=== PATIENT | male | born 1950 | race Caucasian/White ===

== ENCOUNTER → 2020-11-21 00:49 | Outpatient (CLI) | payer MEDICARE, SELFPAY ==
[2020-11-21 17:56] LABS: SARS-CoV-2 RNA PCR Negative
== END ==
PROVIDERS: PCP Family Medicine; Visit Provider Internal Medicine Gastroenterology
DX: Z01.812 Encounter for preprocedural laboratory examination (principal); Z20.822 Contact with and (suspected) exposure to COVID-19
CPT/HCPCS: C9803; U0003; U0005

== ENCOUNTER 2020-11-25 01:11 | Day surgery (SDC) | payer MEDICARE, SELFPAY ==
[2020-11-12 15:45] VITALS: BMI 27.3
--- NOTE | 2020-11-24 13:26 | P.PNAN_ITS ---
Anes - Initial Pre Proc Eval Procedure: Operation Date: 11/25/20 09:30 Proposed Procedures p Screening Colonoscopy - Chidi Borden MD Date/Time: 11/24/20 13:26 Surgeon: Chidi Borden MD Pre Op Diagnosis: family hx of colon ca Patient Data Age: 70 Gender: M Height: 1.68 m Weight: 77 kg Allergies Allergy/AdvReac Type Severity Reaction Status Date / Time No Known Allergies Allergy Verified 11/25/20 08:22 Home Medications Medication Instructions Recorded Confirmed Type amlodipine 5 mg PO DAILY 11/12/20 11/12/20 History ascorbic acid (vitamin C) 1 g PO DAILY 11/12/20 11/12/20 History benazepril 20 mg PO DAILY 11/12/20 11/12/20 History multivit with min-folic acid 1 tablet PO DAILY 11/12/20 11/12/20 History [Adult One Daily Multivitamin] simvastatin 20 mg PO DAILY 11/12/20 11/12/20 History Patient hx anesthesia problems: none Family hx anesthesia problems: none [facility] Past Medical History Medical History (Updated 11/24/20 @ 13:27 by Clark Wyamn DO) Hyperlipidemia Hypertension Surgical History Surgical History (Updated 11/24/20 @ 13:26 by Clark Wyman DO) History of appendectomy Social History Social History Smoking status: Never smoker Living arrangements: with family Spiritual care concerns: No Anes - Eval Final PreProcedure Day of Procedure 11/24/20 13:26 Patient weight: overweight Heart: regular rate and rhythm Lungs: clear to auscultation and normal air movement Airway: Mallampati scale class II Neurological: alert and oriented Last oral intake: >/= 8 hours ASA classification: II Emergent: no Anesthetic plan: proceed Anesthesia type and monitoring: general GIVS and standard monitoring Informed Consent: The patient's anesthetic plan and its attendant risks and benefits were discussed with the patient/family/POA. Questions were solicited and answers provided to the satisfaction of the patient/family/POA.
[2020-11-25 08:24] VITALS: BP 130/88; PULSE 65; RESP 18; TEMP 35.6; O2SAT 100
[2020-11-25] MEDS: LACTATED RINGERS 1,000 ML 150 ML IV CONT (08:37)
--- NOTE | 2020-11-25 09:36 | WPDGICN ---
Assessment and Plan Assessment and plan (1) Family history of colon cancer in father: Code(s): Z80.0 - Family history of malignant neoplasm of digestive organs Status: Acute Assessment and Plan: Patient's father and brother both had colon cancer. For this reason colonoscopy is recommended now and at least every 5 years in the future. GI Consult Note Consult date/time: 11/25/20 09:36 HPI: Tito Ly is a 70 year old male Presents for screening colonoscopy. Patient's last exam was 2015. It was normal. Family history is significant father and brother both have had colon cancer. Patient states that his own weight appetite bowel movements are normal. Patient denies abdominal pain. He has had no bleeding. His bowel habits are regular. He presents today for surveillance exam. Review of Systems Review of Systems: All systems reviewed & are unremarkable except as noted in HPI and below PMFSH Past Medical History Medical History (Updated 11/25/20 @ 09:37 by Chidi Borden MD) Hyperlipidemia Hypertension Surgical History Surgical History (Updated 11/24/20 @ 13:26 by Clark Wyman DO) History of appendectomy Social History Social History Smoking status: Never smoker Living arrangements: with family Spiritual care concerns: No Meds Home Medications and Allergies Home Medications Medication Instructions Recorded Confirmed Type amlodipine 5 mg PO DAILY 11/12/20 11/12/20 History ascorbic acid (vitamin C) 1 g PO DAILY 11/12/20 11/12/20 History benazepril 20 mg PO DAILY 11/12/20 11/12/20 History multivit with min-folic acid 1 tablet PO DAILY 11/12/20 11/12/20 History [Adult One Daily Multivitamin] simvastatin 20 mg PO DAILY 11/12/20 11/12/20 History Allergies Allergy/AdvReac Type Severity Reaction Status Date / Time No Known Allergies Allergy Verified 11/25/20 08:22 Vital Signs Vital Signs - 24 hr 11/25/20 08:24 Temperature 96.1 F L Pulse Rate 65 Respiratory Rate 18 Blood Pressure 130/88 Pulse Oximetry 100 Exam Narrative: Exam Narrative: Physical exam reveals patient be alert. Vital signs stable. HEENT exam unremarkable. Patient is anicteric. Lungs are clear to auscultation and percussion. Heart is without murmur or extra sounds. Abdominal exam bowel sounds are present soft nontender with no organomegaly. Digital external rectal exam is normal.
[2020-11-25 10:10] VITALS: BP 118/79; PULSE 59; RESP 18; O2SAT 100
[2020-11-25 10:20] VITALS: BP 131/86; PULSE 59; RESP 16; O2SAT 100
[2020-11-25 10:30] VITALS: BP 136/90; PULSE 59; RESP 16; O2SAT 100
== END 2020-11-25 10:38 | disposition home or self-care (01) ==
PROVIDERS: PCP Family Medicine; Visit Provider Internal Medicine Gastroenterology
PROC: 0DJD8ZZ Inspection of Lower Intestinal Tract, Via Natural or Artificial Opening Endoscopic (ICD-10-PCS; CPT 45378; principal; 2020-11-25 09:30)
DX: Z12.11 Encounter for screening for malignant neoplasm of colon (principal); D12.3 Benign neoplasm of transverse colon; K64.8 Other hemorrhoids; Z80.0 Family history of malignant neoplasm of digestive organs; I10 Essential (primary) hypertension; E78.5 Hyperlipidemia, unspecified
CPT/HCPCS: 45385; 88305; C9803; J2704; J7120; U0003; U0005

== ENCOUNTER 2024-05-14 02:09 | Day surgery (SDC) | payer MEDICARE, SELFPAY ==
[2024-04-24 11:31] VITALS: BMI 27.6
--- NOTE | 2024-05-14 08:23 | SUR.PREOP ---
Pt states he has advance directives in place for DNR. Pt states he wishes to be a full code during his colonoscopy.
[2024-05-14 08:25] VITALS: BP 112/68; PULSE 70; RESP 18; TEMP 36.2; O2SAT 100
[2024-05-14] MEDS: LACTATED RINGERS 1,000 ML 150 ML IV CONT (08:33)
--- NOTE | 2024-05-14 08:42 | P.PNAN_ITS ---
Anes - Initial Pre Proc Eval Procedure: Operation Date: 05/14/24 09:30 Proposed Procedures p Colonoscopy - Alan Kramer MD Date/Time: 05/14/24 08:42 Surgeon: Alan Kramer MD Pre Op Diagnosis: Personal hx. of colon polyps Patient Data Age: 74 Gender: M Height: 1.68 m Weight: 76 kg Last Vital Signs Temp 36.2 C L 05/14/24 08:25 Pulse 70 05/14/24 08:25 Resp 18 05/14/24 08:25 BP 112/68 05/14/24 08:25 Pulse Ox 100 05/14/24 08:25 O2 Del Method Room Air 05/14/24 08:25 Allergies Allergy/AdvReac Type Severity Reaction Status Date / Time No Known Allergies Allergy Verified 05/14/24 08:23 Home Medications Medication Instructions Recorded Confirmed Type amlodipine 5 mg tablet 5 mg PO DAILY 11/12/20 05/14/24 History ascorbic acid (vitamin C) 1,000 mg 1 g PO DAILY 11/12/20 05/14/24 History tablet benazepril 20 mg tablet 20 mg PO DAILY 11/12/20 05/14/24 History multivitamin with minerals-folic 1 tablet PO DAILY 11/12/20 05/14/24 History acid 0.4 mg tablet (Adult One Daily Multivitamin) simvastatin 20 mg tablet 20 mg PO DAILY 11/12/20 05/14/24 History Patient hx anesthesia problems: none Family hx anesthesia problems: none Results Review: All pre-operative results and documents have been reviewed as part of the pre- operative evaluation. [facility] Past Medical History Medical History Hyperlipidemia Hypertension Surgical History Surgical History History of appendectomy Social History Social History Smoking packs per day: 0.5 Smoking cigarettes per day: 10.0 Years smoked: 2 Smoking pack-years: 1.00 Smoking status: Former smoker Tobacco type: cigarettes Alcohol intake: never Substance use: never Substance use type: does not use Living arrangements: alone Spiritual care concerns: No Anes - Eval Final PreProcedure Day of Procedure 05/14/24 08:42 Patient weight: overweight Heart: regular rate and rhythm Lungs: clear to auscultation Airway: Mallampati scale class II Neurological: alert and oriented Last oral intake: >/= 8 hours ASA classification: II Emergent: no Anesthetic plan: proceed Anesthesia type and monitoring: general GIVS and standard monitoring Results Review: All pre-operative results and documents have been reviewed as part of the pre- operative evaluation. Informed Consent: The patient's anesthetic plan and its attendant risks and benefits were discussed with the patient/family/POA. Questions were solicited and answers provided to the satisfaction of the patient/family/POA.
--- NOTE | 2024-05-14 09:19 | PM.HPGS ---
History of Present Illness History of Present Illness Consent: Risks, benefits, and alternatives have been discussed and questions answered. Patient agrees to proceed with procedure. Chief complaint: Personal hx. of colon polyps Narrative: Tito Ly is a 74 year old male here for colonoscopy, last exam was 2020. Family history is significant father and brother both have had colon cancer. Review of Systems Review of Systems: All systems reviewed & are unremarkable except as noted in HPI and below PMFSH Past Medical History Medical History Hyperlipidemia Hypertension Surgical History Surgical History History of appendectomy Social History Social History Smoking packs per day: 0.5 Smoking cigarettes per day: 10.0 Years smoked: 2 Smoking pack-years: 1.00 Smoking status: Former smoker Tobacco type: cigarettes Alcohol intake: never Substance use: never Substance use type: does not use Living arrangements: alone Spiritual care concerns: No Meds Home Medications and Allergies Home Medications Medication Instructions Recorded Confirmed Type amlodipine 5 mg tablet 5 mg PO DAILY 11/12/20 05/14/24 History ascorbic acid (vitamin C) 1,000 mg 1 g PO DAILY 11/12/20 05/14/24 History tablet benazepril 20 mg tablet 20 mg PO DAILY 11/12/20 05/14/24 History multivitamin with minerals-folic 1 tablet PO DAILY 11/12/20 05/14/24 History acid 0.4 mg tablet (Adult One Daily Multivitamin) simvastatin 20 mg tablet 20 mg PO DAILY 11/12/20 05/14/24 History Allergies Allergy/AdvReac Type Severity Reaction Status Date / Time No Known Allergies Allergy Verified 05/14/24 08:23 Vital Signs Vital Signs - 24 hr 05/14/24 08:25 Temperature 97.1 F L Pulse Rate 70 Respiratory Rate 18 Blood Pressure 112/68 Pulse Oximetry 100 Oxygen Delivery Room Air Exam Const: General: comfortable and no acute distress HENMT: Face/Nose/Sinus: Normal nares present Eyes: General: appearance normal, both eyes and all related structures Neck: Neck: no JVD Resp: Auscultation: clear to auscultation bilaterally Cardio: Rate: regular rate Rhythm: regular rhythm GI: Inspection: non-distended GI Palp: Yes Soft to palpation Skin: General skin exam: normal color Neuro: General: gait normal Speech: normal speech Extrem: General: normal to inspection Psych: Mental Status: mental status grossly normal Assessment and Plan Assessment and plan (1) Family history of colon cancer in father: Code(s): Z80.0 - Family history of malignant neoplasm of digestive organs Status: Acute Assessment and Plan: colonoscopy
[2024-05-14 09:35] VITALS: BP 88/57; PULSE 62; RESP 15; O2SAT 97
[2024-05-14 09:45] VITALS: BP 95/59; PULSE 61; RESP 15; O2SAT 97
[2024-05-14 09:55] VITALS: BP 112/68; PULSE 61; RESP 16; O2SAT 99
== END 2024-05-14 10:07 | disposition home or self-care (01) ==
PROVIDERS: PCP Family Medicine; Visit Provider Internal Medicine Gastroenterology
PROC: 0DJD8ZZ Inspection of Lower Intestinal Tract, Via Natural or Artificial Opening Endoscopic (ICD-10-PCS; CPT 45378; principal; 2024-05-14 09:30)
DX: Z12.11 Encounter for screening for malignant neoplasm of colon (principal); D12.2 Benign neoplasm of ascending colon; K63.5 Polyp of colon; K64.8 Other hemorrhoids; E78.5 Hyperlipidemia, unspecified; I10 Essential (primary) hypertension; Z98.890 Other specified postprocedural states; Z87.891 Personal history of nicotine dependence; Z80.0 Family history of malignant neoplasm of digestive organs
CPT/HCPCS: 45385; 88305; J2704; J7120

== ENCOUNTER 2024-07-12 01:31 | Day surgery (SDC) | payer MEDICARE, OTHER, SELFPAY ==
[2024-07-09 12:59] VITALS: BMI 26.6
--- OUTSIDE RECORDS SUMMARY | 2024-07-12 01:36 | XMS_ITS | Clinical Summary ---
Author Organization [facility] [employer] Address [address] [place] [address] Care Team Providers Care Paint Booth Operator Name Role Phone Kevin Hay MD Primary Care Provider [phone] Source Comments [facility] [employer],non-owned Affiliates and Associated Physician Practices is amultiple site organization consisting of ambulatory clinics and hospital sitesin [place], [place], [place] and [place]. This disclosure is being madepursuant to the Care Everywhere program and may not contain all information available regarding this patient. Last updated 18.[facility] [employer] Allergies No known active allergies Medications * Be aware that medications may not be up to date on this document. Alwaysverify current medications with the patient. Medication Sig Dispensed Refills Start Date End Date Status simvastatin (ZOCOR) 20 MG tablet Take 20 mg by mouth once daily 04/29/2020 Active benazepril (LOTENSIN) 20 MG tablet Take 20 mg by mouth once daily 04/29/2020 Active amLODIPine (NORVASC) 5 MG tablet Take 5 mg by mouth once daily 01/24/2020 Active multivitamin daily tablet Take 1 tablet by mouth daily with food Active vitamin C (ASCORBIC ACID) 1000 MG tablet Take 1,000 mg by mouth once daily Active vitamin D3 (CHOLECALCIFEROL) 25 MCG (1000 UNITS) tablet Take 1,000 Units by mouth once daily Active CLENPIQ solution 11/17/2020 Active mometasone (ELOCON) 0.1 % ointmentIndications:Ot her eczema Apply to dry areas on hands twice daily. 30 days supply. 45 g 11 05/12/2021 Active econazole nitrate (SPECTAZOLE) 1 % cream Apply to feet and left hand 1-2 times daily. 30 days supply. 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 Hypercholesterolemia 08/01/2013 Hypertension 08/01/2013 Vitamin B1 deficiency 08/30/2012 Vitamin D deficiency 08/30/2012 Immunizations Name Administration Dates Next Due INFLUENZA VACCINE 04/05/2020 Family History Medical History Relation Name Comments None Known Brother None Known Father None Known Maternal Aunt None Known Maternal Grandfather None Known Maternal Grandmother None Known Maternal Uncle None Known Mother None Known Other None Known Paternal Aunt None Known Paternal Grandfather None Known Paternal Grandmother None Known Paternal Uncle None Known Sister Asthma Neg Hx CVA Neg Hx Cancer - Breast Neg Hx Cancer - Other Neg Hx Cancer - Skin, Melanoma Neg Hx Cancer - Skin, Non Melanoma Neg Hx Eczema Neg Hx Hemophilia Neg Hx Psoriasis Neg Hx Relation Name Status Comments Brother Father Maternal Aunt Maternal Grandfather Maternal Grandmother Maternal Uncle Mother Other Paternal Aunt Paternal Grandfather Paternal Grandmother Paternal Uncle Sister Social History Tobacco Use Types Packs/Day Years Used Date Smoking Tobacco: Never Smokeless Tobacco: Never Sex and Gender Information Value Date Recorded Sex Assigned at Not on file Gender Identity Not on file Sexual Orientation Not on file Plan of Treatment Health Maintenance Due Date Last Done Comments COLOGUARD (AGES 45-75) - COL ON CA SCREENING 1949 COLON MONITORING 1949 COLONOSCOPY - COLON CA SCREENING 1949 CT COLONOGRAPHY - COLON CA SCREENING 1950 Colorectal Cancer Screening 1949 FIT - COLON CA SCREENING 1949 FLEX SIG - COLON CA SCREENING 1950 HEPATITIS C SCREENING 01/18/1967 DTAP/TDAP/TD VACCINES (1 - Tdap) 01/23/1968 PNEUMOCOCCAL VACCINE 50+ (1 of 1 - PCV) 1999 ZOSTER VACCINE (1 of 2) 1999 Respiratory Syncytial Virus (RSV) Vaccine Pt: or over 60 yrs (1 - 1-dose 75+ series) 01/23/2024 COVID-19 VACCINE (2023-2 5 season) 2024 INFLUENZA VACCINE (#1) 2024 1, 04/05/2020 DEPRESSION SCREENING 06/12/2024 MEDICARE AWV ? CALENDAR YEAR 2024 HEPATITIS B VACCINE Aged Out No longe r eligible based on patient's age to complete this topic HIB VACCINE Aged Out No longer eligi ble based on patient's age to complete this topic HPV VACCINE Aged Out No longer eligi ble based on patient's age to complete this topic MENINGOCOCCAL (Group B) VACCINE Aged Out No longer eligible b ased on patient's age to complete this topic MENINGOCOCCAL VACCINE Aged Out No oksana lauren eligible based on patient's age to complete this topic Care Teams Paint Booth Operator Relationship Specialty Start Date End Date Kevin Hay MD PCP - General 08/10/15
--- OUTSIDE RECORDS SUMMARY | 2024-07-12 01:36 | XMS_ITS | Patient Health Summary ---
Author Organization [facility] Address [address] [place] [address] Care Team Providers Care Frame Maker Name Role Phone Kevin Hay MD Primary Care Provider [phone] Note from [facility],non-owned Affiliates and Associated Physician Practices is amultiple site organization consisting of ambulatory clinics and hospital sitesin [place], [place], [place] and [place]. This disclosure is being madepursuant to the Care Everywhere program and may not contain all information available regarding this patient. Last updated 18.[facility] Allergies No known active allergies Medications * Be aware that medications may not be up to date on this document. Alwaysverify current medications with the patient. * simvastatin (ZOCOR) 20 MG tablet(Started 04/29/2020) Take 20 mg by mouth once daily * benazepril (LOTENSIN) 20 MG tablet(Started 04/29/2020) Take 20 mg by mouth once daily * amLODIPine (NORVASC) 5 MG tablet(Started 01/24/2020) Take 5 mg by mouth once daily * multivitamin daily tablet Take 1 tablet by mouth daily with food * vitamin C (ASCORBIC ACID) 1000 MG tablet Take 1,000 mg by mouth once daily * vitamin D3 (CHOLECALCIFEROL) 25 MCG (1000 UNITS) tablet Take 1,000 Units by mouth once daily * CLENPIQ solution(Started 11/17/2020) * mometasone (ELOCON) 0.1 % ointment(Started 05/12/2021) Apply to dry areas on hands twice daily. 30 days supply. 11 refills by 05/12/2022 * econazole nitrate (SPECTAZOLE) 1 % cream(Started 11/15/2021) Apply to feet and left hand 1-2 times daily. 30 days supply. 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 Hypercholesterolemia 08/01/2013 Hypertension 08/01/2013 Vitamin B1 deficiency 08/30/2012 Vitamin D deficiency 08/30/2012 Immunizations * INFLUENZA VACCINE(Given 04/05/2020) Social History Tobacco Use Types Packs/Day Years Used Date Smoking Tobacco: Never Smokeless Tobacco: Never Sex and Gender Information Value Date Recorded Sex Assigned at Not on file Gender Identity Not on file Sexual Orientation Not on file Procedures * CA DESTROY PREMALIG LESION, 1ST LESION(Performed 05/12/2021) Performed for Actinic keratosis * CA DESTROY PREMALIG LESION, 2-14(Performed 05/12/2021) Performed for Actinic keratosis * CA DESTROY PREMALIG LESION, 1ST LESION(Performed 05/06/2020) Performed for Actinic keratosis * CA DESTROY PREMALIG LESION, 2-14(Performed 05/06/2020) Performed for Actinic keratosis * DERMATOPATHOLOGY(Performed 06/17/2011) Results * CA DESTROY PREMALIG LESION, 2-14, CA DESTROY PREMALIG LESION, 1ST LESION (05/12/2021 12:17 PM GAME DEVELOPER) Narrative Ian Pedroza MD - 05/12/2021 12:17 PM GAME DEVELOPER Biju Washington MD ? 05/12/2021 12:18 PM Diagnosis and treatment options discussed. Cryotherapy (Liquid Nitrogen) to 7 lesions for 4-6 seconds each. Number of cycles: 1. Wound care reviewed. Ian Pedroza MD PROCEDURE/MINOR SURG ICAL ORDERABLES * CA DESTROY PREMALIG LESION, 2-14, CA DESTROY PREMALIG LESION, 1ST LESION (05/06/2020 4:01 PM GAME DEVELOPER) Narrative Ian Pedroza MD - 05/06/2020 4:01 PM GAME DEVELOPER Lisa East MD ? 05/06/2020 ??4:02 PM Diagnosis and treatment options discussed for AK. Verbal consent obtained. ?? Cryotherapy (Liquid Nitrogen) performed to 8 lesions (scalp, ears, face, back, mid-chest) for 10 seconds each. Number of cycles: 1. Wound care reviewed and post-cryotherapy handout given. 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 Check margins. GROSS DESCRIPTION: Received is one formalin filled container labeled with the patient's name and designated right buttock. The specimen consists of a shave biopsy measuring 10x6x1 mm. Jar 0. MICROSCOPIC DESCRIPTION: Embedded in a fibrous cellular stroma there are numerous anastomosing narrow strands of basaloid cells. ??In areas, the collections of basaloid cells show peripheral palisading. Lesion is present at the margin of the specimen. Final Diagnosis performed by Racheal De Leon M.D. Electronically signed 06/21/2011 2:36:25PM [facility] Comment: Performed at: Dermatopathology Laboratory [facility] Department of Dermatology [address] [place] [address], [address] [place] [address] Phone number: [phone] Toll Free: [phone] FAX: [phone] 06/17/2011 06/20/2011 Historical Provider LAB - PATHOLOGY/C YTOLOGY ORDERABLES [facility] [address] Lab [address] [phone] Care Teams Frame Maker Relationship Specialty Start Date End Date Kevin Hay MD [facility] - General 08/10/15
--- OUTSIDE RECORDS SUMMARY | 2024-07-12 01:36 | XMS_ITS | Clinical Summary ---
Author Organization [facility] Address [address] [place] [address]. [place] [address] [place] [address] Care Team Providers Care Vp Marketing Name Role Phone Kevin Hay MD Primary Care Provider [phone] Allergies No known active allergies Medications Multiple Vitamin (MULTI VITAMIN MENS) Tab Take 1 tablet by mouth daily. 10/22/19 15 Active Ascorbic Acid 1000 MG Tab Take 1,000 mg by mouth daily. Active benazepril (LOTENSIN) 20 MG tabletIndicati ons:Hypertensi on, unspecified type TAKE 1 TABLET BY MOUTH EVERY DAY 90 tablet 1 05/17/20 24 Active simvastatin (ZOCOR) 20 MG tabletIndicati ons:Hyperchole sterolemia TAKE 1 TABLET BY MOUTH EVERYDAY AT BEDTIME 90 tablet 05/17/20 24 Active tiZANidine HCl 2 MG CapIndications :Strain of trapezius muscle, unspecified laterality, subsequent encounter TAKE 1 CAPSULE BY MOUTH EVERY DAY 90 capsule 1 06/26/19 25 Active Additional Information Patient not taking.Reported on 07/02/2024 Calcium-Vitami n D-Vitamin K 650-12.5-40 MG-MCG-MCG Chew TabIndications :PT TAKING IN PILL FORM Chew 650 mg by mouth daily. Indications: PT TAKING IN PILL FORM Active folic acid (FOLVITE) 400 MCG tablet Take 1 tablet (400 mcg total) by mouth daily. Active Selenium 200 MCG Tab Take 200 mcg by mouth daily. Active [place]-3 Fatty Acids (FISH OIL) 500 MG capsule Take 1,000 mg by mouth daily. Active amLODIPine (NORVASC) 5 MG tabletIndicati ons:Hypertensi on, unspecified type Take 1 tablet (5 mg total) by mouth daily. 90 tablet 1 07/03/19 25 Active tiZANidine HCl 2 MG CapIndications :Strain of trapezius muscle, unspecified laterality, subsequent encounter take 1 capsule by mouth every day 90 capsule 1 11/01/19 24 025 Discontinued amLODIPine (NORVASC) 5 MG tabletIndicati ons:Hypertensi on, unspecified type Take 1 tablet (5 mg total) by mouth daily. 90 tablet 05/02/20 24 025 Discontinued(R eorder) Active Problems Problem Noted Date Diagnosed Date Overweight (BMI 25.0-29.9) 01/16/2023 Neck pain 01/03/2022 Cervical stenosis of spine 11/23/2021 Overview (04/28/2022): Last Assessment & Plan: Mr. Ly has posterior neck pain associated with cervical stenosis. He does not have any radicular symptoms or myelopathic changes. Explained to the patient all options are open to him including medications, injections, physical therapy, chiropractor treatment and eventually possibility of surgical intervention in the form of C6-7 anterior cervical diskectomy and fusion. Explained to the patient given the fact that he does not have any motor deficits to consider pain management and/or chiropractic treatment for symptomatic relief. Instructed the patient to call the office back should he developed increased weakness, numbness tingling, pain that is unrelenting, issues with balance and manual dexterity. Reviewed the MRI study with patient, his and daughter and discussed the nature of the problem and the surgical approach that Dr. Ivey has recommended. They would like to proceed with conservative route of treatment prior to consideration of surgery at this time. Patient to follow up as needed. MRI CD as well as the CT scan films have been return to the patient. 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 Hypercholesterolemia 08/01/2013 Hypertension 08/01/2013 Vitamin B1 deficiency 08/30/2012 Vitamin D deficiency 08/30/2012 Resolved Problems Problem Noted Date Diagnosed Date Resolved Date Wears glasses 08/03/2017 02/21/2020 Encounters Date Type Department Care Team Description 07/03/2024 Scan [facility] Scanned, [facility] 07/02/2024 9:20 AM FINANCIAL LEGAL ASSISTANT Office Visit [facility] [address] [phone] Eliot Perla PA TCM (Pt here for follow up from hospital discharge) 07/02/2024 Travel 07/01/2024 Telephone [facility] [address] [address] Kevin Hay MD TCM 06/30/2024 Scan [facility] Scanned, Doc Med Group 05/14/2024 Scan [facility] Scanned, Doc Med Group Pathology (SCAN); Colonoscopy Report (SCAN) 05/02/2024 7:20 AM FINANCIAL LEGAL ASSISTANT Office Visit [facility] [address] [phone] Kevin Hay MD Follow Up; Hypertension 05/02/2024 Travel from Last 3 Months Immunizations Name Administration Dates Next Due Fluad influenza vaccine, Bernardo drivalent (aIIV4), Inactivated, adjuvanted, preservative free, 0.5 mL,IM use 04/08/2020 Fluzone High Dose - >Age 65 (Prefilled Syringe) 05/01/2023,03/09/2021 Influenza Adult (Generic) 04/23/2022,03/09/2021 PFIZER COVID-19 (ORIGINAL FO RMULATION, PURPLE CAP) mRNA, LNP-S, PF, 30 MCG/0.3 ML DOSE 05/10/2021,09/02/2020,08/11/2020 Shingrix 06/08/2021,02/12/2021 Tdap (Adacel) 10/01/2021 Family History Medical History Relation Comments Colon Cancer Father Heart Attack Mother Relation Status Comments Brother Father Mother Social History Tobacco Use Types Packs/Day Years Used Date Smoking Tobacco: Former Cigarettes Smokeless Tobacco: Never Tobacco Cessation:Counseling Given: Yes Comments:former smoker Alcohol Use Standard Drinks/Week Comments No 0 (1 standard drink = 0.6 oz pur e alcohol) AUDIT-C Answer Date Recorded Frequency of Alcohol Consumption Never 05/08/2018 Average Number of Drinks Not on file 018 Frequency of Binge Drinking Not on file 04/13 PHQ-2 Answer Date Recorded Patient Health Questionnaire-2 Score 0 07/02/2024 Sex and Gender Information Value Date Recorded Sex Assigned at Not on file Legal Sex Male 7:40 PM CDT Gender Identity Not on file Sexual Orientation Not on file Last Filed Vital Signs Vital Sign Reading Time Taken Comments Blood Pressure 135/85 07/02/2024 9:27 AM FINANCIAL LEGAL ASSISTANT Pulse 71 07/02/2024 9:27 AM FINANCIAL LEGAL ASSISTANT Temperature 36.4 ??C (97.5 ??F) 07/02/2024 9:27 AM CS T Respiratory Rate 16 07/02/2024 9:27 AM FINANCIAL LEGAL ASSISTANT Oxygen Saturation 100% 07/02/2024 9:27 AM FINANCIAL LEGAL ASSISTANT Inhaled Oxygen Concentration - - Weight 73 kg (161 lb) 07/02/2024 9:27 AM FINANCIAL LEGAL ASSISTANT Height 167.6 cm (5' 6 ) 07/02/2024 9:27 AM FINANCIAL LEGAL ASSISTANT Body Mass Index 25.99 07/02/2024 9:27 AM FINANCIAL LEGAL ASSISTANT Plan of Treatment Upcoming Encounters Date Type Department Care Team (Late st Contact Info) Description 10/31/2024 7:40 AM CDT Office Visit [facility] Family & Internal Medicine [facility] [id number] [place] [phone] [place] [id number] [place] [address] Health Maintenance Due Date Last Done Comments Hepatitis C 1968 Annual Medicare Wellness Visit 2014 Pneumococcal Vaccine: 65+ Years (1 of 1 - PCV) 2014 RSV Immunization or 60+ Years (1 - 1-dose 75+ series) 01/23/2024 COVID-19 Vaccine (4 - 2024-25 season) 2024 05/10/2021, 09/02/2020, 08/11/2020 Influenza Adult (#1) 2024 05/01/2023, 04/23/2022, 03/09/2021, Additional history exists PHQ-2 (Physician Deering) 07/02/2025 07/02/2024 DTaP, Tdap and Td Vaccines (2 - Td or Tdap) 10/02/2031 10/01/2021 Colorectal Cancer Screening Colonoscopy (10 Years) 05/14/2034 05/14/2024, 10/03/2017, 08/05/2017 Zoster Vaccines Completed 06/08/2021, 02/12/2021 AAA SCREENING Completed 06/30/2024, 06/30/2024 PHQ-2 (Physician Deering) Completed 07/02/2024 Meningococcal B Vaccine Aged Out No l onger eligible based on patient's age to complete this topic Meningococcal Vaccine Aged Out No oksana lauren eligible based on patient's age to complete this topic RSV Immunizations Under 20 Months Aged Out No longer eligible based on patient's age to complete this topic Procedures Procedure Name Priority Date/Time Associated Diagnosis Comments PATHOLOGY GENERIC (SCAN ORDER) 05/14/2024 COLONOSCOPY GENERIC (SCAN ORDER) 05/14/2024 from Last 3 Months Results * PATHOLOGY GENERIC (SCAN ORDER) (05/14/2024) 05/14/2024 [facility] Scanned SCANNING Final Resu lt * COLONOSCOPY GENERIC (SCAN ORDER) (05/14/2024) 05/14/2024 [facility] Scanned SCANNING Final Resu lt from Last 3 Months Additional Health Concerns Infection Onset Date Last Indicated 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
--- OUTSIDE RECORDS SUMMARY | 2024-07-12 01:36 | XMS_ITS | Referral Summary ---
Author Organization [facility] Address [address] [place] [address] Care Team Providers Care Timber Cruiser Name Role Phone Kevin Hay MD Primary Care Provider [phone] Source Comments [facility],non-owned Affiliates and Associated Physician Practices is amultiple site organization consisting of ambulatory clinics and hospital sitesin [place], [place], [place] and [place]. This disclosure is being madepursuant to the Care Everywhere program and may not contain all information available regarding this patient. Last updated 18.[facility] Allergies No known active allergies Medications * [...] Administration Dates Next Due INFLUENZA VACCINE 04/05/2020 Social History Tobacco Use Types Packs/Day Years Used Date Smoking Tobacco: Never Smokeless Tobacco: Never Sex and Gender Information Value Date Recorded Sex Assigned at Not on file Gender Identity Not on file Sexual Orientation Not on file Plan of Treatment Not on file Care Teams Timber Cruiser Relationship Specialty Start Date End Date Kevin Hay MD PCP - General 08/10/15
--- OUTSIDE RECORDS SUMMARY | 2024-07-12 01:36 | XMS_ITS | Encounter Summary ---
Author Organization [facility] Address [address] [place] [address]. [place] [address] [place] [address] Care Team Providers Care Roller Engraver Name Role Phone Kevin Hay MD Primary Care Provider [phone] Encounter Details Date Type Department Care Team (Latest Contact Info) Description 07/03/2024 Scan HEALTH INFO SRVCS Scanned, Doc Med Group Social History Tobacco Use Types Packs/Day Years Used Date Smoking Tobacco: Former Cigarettes Smokeless Tobacco: Never Comments:former smoker Alcohol Use Standard Drinks/Week Comments [...] on file Sexual Orientation Not on file documented as of this encounter Plan of Treatment Upcoming Encounters Date Type Department Care Team (Late st Contact Info) Description 10/31/2024 7:40 AM CDT Office Visit [facility] Family & Internal Medicine [facility] [address] [place] [address] [place] [id number] [place] [address] documented as of this encounter Visit Diagnoses Not on filedocumented in this encounter Additional Health Concerns Infection Onset Date Last Indicated Resolved Time MRSA 07/01/2018 07/01/2018 Assessment Noted Time PHQ-9 Depression Total Score: 0 10/27/19 7:10 AM CDT documented as of this encounter Care Teams Roller Engraver Relationship Specialty [place] [address] [place] [address] PCP - General FAMILY PRACTICE 05/01/18 documented as of this encounter
[2024-07-12 09:59] VITALS: BP 117/80; PULSE 81; RESP 20; TEMP 35.8; O2SAT 100; BMI 24.9
[2024-07-12] MEDS: LACTATED RINGERS 1,000 ML 150 ML IV CONT (10:12)
--- NOTE | 2024-07-12 10:30 | WPDANESEPPF ---
Anes - Initial Pre Proc Eval Procedure: Operation Date: 07/12/24 11:00 Proposed Procedures p Colonoscopy - Alan Kramer MD Date/Time: 07/12/24 10:30 Surgeon: Alan Kramer MD Pre Op Diagnosis: abn findings on diag imaging, gastroenteritis and Patient Data Age: 74 Gender: M Height: 1.68 m Weight: 70 kg Last Vital Signs Temp 35.8 C L 07/12/24 09:59 Pulse 81 07/12/24 09:59 Resp 20 07/12/24 09:59 BP 117/80 07/12/24 09:59 Pulse Ox 100 07/12/24 09:59 O2 Del Method Room Air 07/12/24 09:59 Allergies Allergy/AdvReac Type Severity Reaction Status Date / Time No Known Allergies Allergy Verified 07/12/24 09:58 Home Medications ?Medication ?Instructions ?Recorded ?Confirmed ?Type amlodipine 5 mg tablet 5 mg PO DAILY 11/12/20 07/12/24 History ascorbic acid (vitamin C) 1,000 mg 1 g PO DAILY 11/12/20 07/12/24 History tablet benazepril 20 mg tablet 20 mg PO DAILY 11/12/20 07/12/24 History multivitamin with minerals-folic 1 tablet PO DAILY 11/12/20 07/12/24 History acid 0.4 mg tablet (Adult One Daily Multivitamin) simvastatin 20 mg tablet 20 mg PO DAILY 11/12/20 07/12/24 History Patient hx anesthesia problems: none Family hx anesthesia problems: none Results Review: All pre-operative results and documents have been reviewed as part of the pre-operative evaluation. [facility] Past Medical History Medical History Abnormal CT scan Hyperlipidemia Hypertension Surgical History Surgical History History of appendectomy Social History Social History Smoking packs per day: 0.5 Smoking cigarettes per day: 10.0 Years smoked: 3 Smoking pack-years: 1.50 Smoking status: Former smoker Tobacco type: cigarettes Additional smoking assessment comments: pt quit smoking 50 years ago Alcohol intake: never Substance use: never Substance use type: does not use Living arrangements: with family Spiritual care concerns: No Anes - Eval Final PreProcedure Day of Procedure 07/12/24 10:30 Patient weight: normal Heart: regular rate and rhythm Lungs: clear to auscultation Airway: Mallampati scale class II Neurological: alert and oriented Last oral intake: >/= 8 hours ASA classification: II Emergent: no Anesthetic plan: proceed Anesthesia type and monitoring: general GIVS and standard monitoring Results Review: All pre-operative results and documents have been reviewed as part of the pre-operative evaluation. Informed Consent: The patient's anesthetic plan and its attendant risks and benefits were discussed with the patient/family/POA. Questions were solicited and answers provided to the satisfaction of the patient/family/POA.
--- NOTE | 2024-07-12 11:12 | WPDHPUPDATE1 ---
History and Physical Update Update Date/Time: 07/12/24 11:12 History and Physical has been reviewed, including an updated exam of the patient. There are NO changes in the patient's condition. Risks, benefits, and alternatives have been discussed and questions answered. Patient agrees to proceed with procedure.
[2024-07-12 11:31] VITALS: BP 90/60; PULSE 65; RESP 22; O2SAT 97
[2024-07-12 11:41] VITALS: BP 99/66; PULSE 64; RESP 12; O2SAT 99
[2024-07-12 11:51] VITALS: BP 102/71; PULSE 61; RESP 17; O2SAT 98
== END 2024-07-12 12:01 | disposition home or self-care (01) ==
PROVIDERS: PCP Family Medicine; Referring Provider Nurse Practitioner Family; Visit Provider Internal Medicine Gastroenterology
PROC: 0DJD8ZZ Inspection of Lower Intestinal Tract, Via Natural or Artificial Opening Endoscopic (ICD-10-PCS; CPT 45378; principal; 2024-07-12 11:00)
DX: D12.0 Benign neoplasm of cecum (principal); K63.5 Polyp of colon; Z80.0 Family history of malignant neoplasm of digestive organs
CPT/HCPCS: 45385; 88305; J2003; J2704; J7120